=== PATIENT | female | born 1950 | race Caucasian/White ===

== ENCOUNTER 2018-07-18 09:47 | Inpatient (IN) | payer OTHER, MEDICAID ==
[~2018-07-18] VITALS: Ht 160 cm; Wt 81.0 kg
[~2018-07-18 09:47] MED LIST: ALDACTONE25 MG PO; ALDACTONE50 MG PO; AMITIZA 24 MCG24 MC1 PO; ANTIVERT12.5 MG PO; ASPIR 8181 MG PO; ASPIRIN EC81 M1 PO; ASPIRIN325 PO; ASPIRIN81 M2 PO; BENTYL20 MG PO; BENZTROPINE MES1 MG PO; BENZTROPINE MESY2 MG PO; BIOTIN1 MG PO; Biotin PO; CALCIUM CARBON650 MG PO; CARISOPRODOL 3350 MG PO; COLACE100 MG PO; DOCUSATE SODIU100 MG PO; ELOCON15 GM TOP; ELOCON15 GM TP; FLONASE 0.05%50 MCG NASAL; FOLIC ACID1 MG PO; GLUCAGEN1 M2 IM; HUMALOG KW200 UNIT/1 SUBQ; HYDROCODON-ACE1 EAC7 PO; HYDROCODONE-AP1 EAC6 PO; HYDROXYCHLOROQ200 M1 PO; IRON325 PO; KEFLEX500 M1 PO; LACTULOSE10 GM/15 M PO; LAMICTAL100 MG PO; LAMOTRIGINE100 MG PO; LAMOTRIGINE150 MG PO; LANTUS SUBQ; LANTUSSOLASTAR SUBQ; LASIX 40 MG TAB40 M2 PO; LEVOTHYROXIN0.075 MG PO; LEVOTHYROXIN0.125 M1 PO; LEXAPRO 10 MG T10 M1 PO; LOVAZA1000 MG PO; LYRICA 50 MG50 MG PO; MAGOX 400400 MG PO; METHYLPHENIDATE20 M1 PO; METHYLPHENIDATE20 M4 PO; NEXIUM 40 MG CA40 M1 PO; NEXIUM40 MG PO; NORCO 5-325 TA1 EACH PO; NOVOLOG100 UNIT/1 SUBQ; OLANZAPINE5 M1 PO; OXYBUTYNIN 5 MG5 M1 PO; OXYBUTYNIN ER 55 MG PO; PENICILLIN VK250 MG PO; PERCOCET PO; PRENATAL PLUS1 EAC4 PO; PRENATAL PLUS1 EAC5 PO; PRENATAL PLUS1 EACH PO; PROBIOTIC1 EACH PO; PROTONIX40 M2 PO; REQUIP0.5 MG PO; RITALIN20 MG PO; ROPINIROLE HCL0.5 MG PO; SENNA PO; SENNA-LAX8.6 MG PO; SPIRONOLACTONE100 M1 PO; TETRACYCLINE H500 MG PO; TRAMADOL 50 MG50 MG PO; TRINATE TABLET1 TAB PO; ULTRAM 50MG TAB50 MG PO; VANTIN PO; VITAMIN B-12500 MCG PO; VITAMIN B-6200 MG PO; VITAMIN B-625 MG PO; VITAMIN B-650 M1 PO; XANAX 0.5 MG0.5 M1 PO; XANAX 0.5 MG0.5 MG PO; XIFAXAN550 M1 PO; XIFAXAN550 MG PO; ZANAFLEX4 MG PO; ZYPREXA 10 MG T10 MG PO; ZYPREXA 5 MG TAB5 M2 PO; ZYPREXA5 MG PO; ZYRTEC10 M2 PO; ZYRTEC10 MG PO; [UNRECOGNIZED DRUG - OTHER] PO
[2018-07-18 10:31] LABS: ABSOLUTE EOSINOPHILS 0.1 thou/uL (0.0-0.7); ABSOLUTE LYMPHOCYTES 0.5 thou/uL (0.8-5.3); ABSOLUTE MONOCYTES 0.3 thou/uL (0.0-1.2); ABSOLUTE NEUTROPHILS 2.5 thou/uL (1.6-8.1); BASOPHILS 0.4 %; EOSINOPHILS 3.4 %; HEMATOCRIT 37.5 % (37.0-47.0); HEMOGLOBIN 12.8 gm/dL (12.0-15.0); LYMPHOCYTES 13.5 %; MCH 31.2 pg (26.0-34.0); MCHC 34.2 g/dL (28.0-37.0); MCV 91.3 fL (80.0-100.0); MPV 7.2 fl. (7.2-11.1); NUCLEATED RBCS 0 /100WBC; PLATELET COUNT* 60 thou/uL (150-400); POLYS 74.7 %; RBC 4.11 mil/uL (4.20-5.00); RDW-CV 16.3 % (10.5-14.5); WBC 3.4 thou/uL (4.0-11.0)
[2018-07-18 10:36] LABS: INR 1.2; PROTIME 11.8 Seconds (9.20-11.50)
[2018-07-18 10:55] LABS: CALCIUM 9.4 mg/dL (8.5-10.1); CREATININE 0.9 mg/dL (0.6-1.3); POTASSIUM 3.8 mmol/L (3.5-5.1)
[2018-07-18 10:59] LABS: ALBUMIN 3.5 g/dL (3.4-5.0); TOTAL BILIRUBIN 0.9 mg/dL (<0.1-1.0); TOTAL PROTEIN 7.7 g/dL (6.4-8.2)
[2018-07-18 11:35] VITALS: BP 161/58
--- NOTE | 2018-07-18 12:30 | NUR ---
ASSUMED PT CARE 1135. [facility]. PT C/O OF ABDOMINAL PAIN SHARP 7/10 AND C/O OF NAUSEA. FENTANYL, ZOFRAN AND SCOPALAMINE PATCH ADMININSTERED PER EMAR. ADMISSION ASSESSMENT COMPLETED. LR INFUSING TKO PER DR TENA. AT REASSESSMENT PT RATES PAIN 4/10. PT UP WITH 1 TO BSC. WILL CONTINUE PLAN OF CARE.
[2018-07-18 16:32] VITALS: BP 148/47
--- NOTE | 2018-07-18 18:38 | NUR ---
PT C/O OF ABDOMINAL PAIN. IV FENTANYL ADMININSTERED PER EMAR. LOWEST PAIN RATING IS 4/10. PT HAD BM THIS EVENING AND REPORTS THIS ALEVIATED PAIN IN ABDOMEM. DR TENA ORDERED LINACLOTIDIDE. PER PHARMACY MEDICATION NOT AVAILABLE. DR TENA NOTIFIED. NO ADDITIONAL ORDERS RECEIVED AT THIS TIME.
[2018-07-18 20:00] VITALS: BP 190/80
[2018-07-18 21:57] VITALS: BP 148/50
[2018-07-18 23:58] VITALS: BP 150/52
[2018-07-19 04:00] VITALS: BP 134/75
[2018-07-19 04:58] LABS: ABSOLUTE EOSINOPHILS 0.1 thou/uL (0.0-0.7); ABSOLUTE LYMPHOCYTES 0.6 thou/uL (0.8-5.3); ABSOLUTE MONOCYTES 0.5 thou/uL (0.0-1.2); ABSOLUTE NEUTROPHILS 2.7 thou/uL (1.6-8.1); BASOPHILS 0.7 %; EOSINOPHILS 3.2 %; HEMATOCRIT 36.5 % (37.0-47.0); HEMOGLOBIN 12.3 gm/dL (12.0-15.0); LYMPHOCYTES 15.7 %; MCH 31.1 pg (26.0-34.0); MCHC 33.6 g/dL (28.0-37.0); MCV 92.4 fL (80.0-100.0); MONOCYTES 11.6 %; MPV 7.3 fl. (7.2-11.1); NUCLEATED RBCS 0 /100WBC; PLATELET COUNT* 63 thou/uL (150-400); POLYS 68.8 %; RBC 3.95 mil/uL (4.20-5.00); RDW-CV 16.2 % (10.5-14.5); WBC 3.9 thou/uL (4.0-11.0)
--- NOTE | 2018-07-19 05:02 | NUR ---
PATIENT PROGRESSING TOWARDS GOALS. HAD TWO BM OVERNIGHT LIQUID CONSISTENCY. PT WAS ABLE TO SLEEP MOST OF THE NIGHT. SHE STATED SHE HAS NOT SLEPT IN THE LAST COUPLE DAYS. PT CONTINUES TO COMPLAIN OF ABD PAIN WHEN AWAKE. HAS NOT MAINTAINED COMPLETE RELIEF FOR THIS SHIFT. VS WNL. WILL CONTINUE TO MONITOR CLOSELY. CALL LIGHT WITHIN REACH. BED TO LOWEST POSITION.
[2018-07-19 05:03] LABS: CALCIUM 8.7 mg/dL (8.5-10.1); CREATININE 0.8 mg/dL (0.6-1.3); POTASSIUM 3.6 mmol/L (3.5-5.1)
[2018-07-19 08:00] VITALS: BP 145/75
[2018-07-19 11:50] VITALS: BP 158/65
[2018-07-19 12:00] VITALS: BP 158/65
--- NOTE | 2018-07-19 13:47 | NUR ---
PT.WALKED FROM BATHROOM WITH SBA FROM [facility]. CM SPOKE WITH HER.SHE LIVES AT [facility] IN [place]. SHE SAID HER BROTHER ARRANGED FOR HER TO LIVE THERE WHEN HE LIVED IN [place] BUT NOW HE HAS MOVED TO [place]. ONE TIME SHE SAID SHE DIDN'T LIKE IT THERE AND ANOTHER SHE SAID SHE DID. SHE WOULD LIKE TO MOVE CLOSER TO THIS AREA, GRANDSON LIVES DOWN HERE. SHE SAID SW AT [facility] WAS HELPING HER FIND AN KENDRICK BUT THEN SHE QUIT WORKING THERE. THERE IS SOMEONE WHO HAS TAKEN HER PLACE BUT SHE HASN'T GOTTEN TO SPEAK WITH HER YET. IS INTERESTED IN A LIST OF [facility] IN THIS AREA. SHE FEELS HER MEDICARE AND MEDICAID WOULD PAY FOR KENDRICK. TOLD HER I KNOW THAT MEDICAID WOULD PAY FOR SOME OF IT BUT NOT MEDICARE. SHE DOESNT USE ANY DME. SHE WILL NEED A RIDE BACK TO [facility] AFTER DISCHARGE. SHE FEELS SHE WAS ONLY STAYING ONE NIGHT IN HOSPITAL.
[2018-07-19 15:45] VITALS: BP 164/67
--- NOTE | 2018-07-19 15:53 | NUR ---
[employer] SPOKE TO THE PATIENT AND PROVIDED [employer]OURCES FOR ASSISTED LIVING FACILITIES. PATIENT INFORMS THAT SHE HADD BEEN LOOKING INTO MOVING OVER THE PAST FEW MONTHS, AND PLANS TO CALL [facility]. CM WILL REMAIN AVIALABLE TO ASSIT AND FOLLOW NEEDED.
--- NOTE | 2018-07-19 17:58 | NUR ---
ASSESSMENT CHARTED. AFEBRILE. PT HAS COMPLAINED OF SOME ABD. PAIN. VITAL SIGNS STABLE. MEDICATION GIVEN.
[2018-07-19 20:00] VITALS: BP 147/61
--- NOTE | 2018-07-20 00:24 | NUR ---
REPORT ON THIS PT WAS GIVEN TO CÉSAR JONES AT 0000. PT C/O HAVING PAIN IN GENERALIZED ABD. PRN PAIN MEDICATIONS GIVEN. PT INSIST THAT SHE RECEIVES THE IV PAIN MEDICATION THAT WAS GIVEN TO HER EARLIER. FENTANYL HAS BEEN DC'D AND PT DID NOT RECEIVE ANY PAIN MEDICATIONS DURING THE DAY THERE FORE PAIN LEVEL HAS INCREASED. ALL ATTEMPTS ARE BEING MADE TO GET PT'S PAIN UNDER CONTROL. VSS, AFEBRILE. 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 POC FOLLOWED.
[2018-07-20 03:54] LABS: ABSOLUTE EOSINOPHILS 0.1 thou/uL (0.0-0.7); ABSOLUTE LYMPHOCYTES 0.7 thou/uL (0.8-5.3); ABSOLUTE MONOCYTES 0.5 thou/uL (0.0-1.2); ABSOLUTE NEUTROPHILS 3.6 thou/uL (1.6-8.1); BASOPHILS 0.7 %; EOSINOPHILS 2.5 %; HEMATOCRIT 36.8 % (37.0-47.0); HEMOGLOBIN 12.4 gm/dL (12.0-15.0); LYMPHOCYTES 14.7 %; MCH 31.1 pg (26.0-34.0); MCHC 33.9 g/dL (28.0-37.0); MCV 91.8 fL (80.0-100.0); MONOCYTES 10.3 %; MPV 7.1 fl. (7.2-11.1); NUCLEATED RBCS 0 /100WBC; PLATELET COUNT* 71 thou/uL (150-400); POLYS 71.8 %; RBC 4.01 mil/uL (4.20-5.00)
[2018-07-20 04:29] LABS: ALBUMIN 3.1 g/dL (3.4-5.0); CALCIUM 8.6 mg/dL (8.5-10.1); CREATININE 0.9 mg/dL (0.6-1.3); POTASSIUM 3.3 mmol/L (3.5-5.1)
[2018-07-20 07:55] VITALS: BP 134/53
--- NOTE | 2018-07-20 11:19 | NUR ---
PT TOLD THIS NURSE SHE FELT 'GREAT' DURING ASSESSMENT AND PAIN WAS WELL CONTROLLED ON PAIN MEDS ORDERED. PT AT 75% BREAKFAST AND SAID SHE FOOD WAS GOOD HERE. PT TOLERATED DIET WITHOUT C/O. PT REQUESTED ZOFRAN BEFORE EATING. PT REPORTS HAVING BM YESTERDAY. PT UP TO CHAIR WITH SBA. PT NOW C/O PAIN IN LOW ABD, PAIN MANAGEMENT DISCUSSED AND PRN PAIN MEDICATIONS.
[2018-07-20 15:34] VITALS: BP 145/60
--- NOTE | 2018-07-20 16:26 | NUR ---
RECEIVED REPORT AND ASSUMED CARE @ [id number].
--- NOTE | 2018-07-20 18:34 | NUR ---
PT ALERT AND ORIENTED X 4. DENIES NAUSEA. GIVEN PO MEDICATION FOR PAIN CONTROL. PT TOLERATING SOFT DIET. HOURLY ROUNDS MAINTAINED. CALL LIGHT WITHIN REACH. NURSING TO CONTINUE TO MONITOR.
[2018-07-20 20:00] VITALS: BP 121/48
--- NOTE | 2018-07-20 20:51 | NUR ---
ASSUMED PT CARE AT 1915 REPORT RECEIVED FROM NURSE. PT IS ALERT AWAKE ORIENTED X4. VSS. SATURATION IS 94% ON RA. PT COMPLAIN OF PAIN IN BACK AND LEG, PAIN TO BE RELIEVED BY MED. ASSESSMENT PERFORMED. BOWEL SOUND ARE ACTIVE, PT STATES SHE HAD HER LAST BM THIS MORNING. CURRENTLY ON SOFT DIET. WILL CONTINUE TO MONITOR.
[2018-07-21 04:18] LABS: HEMATOCRIT 33.8 % (37.0-47.0); HEMOGLOBIN 11.5 gm/dL (12.0-15.0); MCH 31.4 pg (26.0-34.0); MCHC 33.9 g/dL (28.0-37.0); MCV 92.4 fL (80.0-100.0); RBC 3.66 mil/uL (4.20-5.00); RDW-CV 16.1 % (10.5-14.5); WBC 3.6 thou/uL (4.0-11.0)
[2018-07-21 04:32] LABS: CALCIUM 8.9 mg/dL (8.5-10.1); CREATININE 0.9 mg/dL (0.6-1.3); MAGNESIUM 1.5 mg/dL (1.8-2.4); POTASSIUM 3.9 mmol/L (3.5-5.1)
[2018-07-21 08:47] VITALS: BP 134/71
--- NOTE | 2018-07-21 10:40 | NUR ---
Nutrition: Consult received for "soft diet x2 weeks, swallowing pain d/t variceal banding." Pt was sleeping soundly at time of visit, 10:20. RD left soft/fiber-restricted/easily swallowed and digested foods diet info on pt's table. Contact info is provided as well. Currently, pt is on 2gm Na diet. Mild risk.
[2018-07-21] MEDS ORDERED: SENNA PLUS TAB1 EACH PO (11:48)
[2018-07-21] MEDS ORDERED: CARAFATE 11 GM/10 M1 PO (11:49)
--- NOTE | 2018-07-21 12:20 | NUR ---
PT.HAS DISCHARGE ORDERS TO GO BACK TO LTC AT [facility]. NOTIFIED ELBERT/ADMISSIONS [phone] AND FAXED HER DISCHARGE SUMMARY,H&P,GI PROGRESS NOTES, AND MED LIST TO [phone]. 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 PT.INFORMED.
[2018-07-21 12:44] VITALS: BP 134/71
[2018-07-21 12:52] VITALS: BP 134/71
[2018-07-21] MEDS ORDERED: ULTRAM 50MG TAB50 MG PO (13:01)
--- NOTE | 2018-07-21 13:51 | NUR ---
REVIEWED AND AGREE WITH ALL CHARTING AND ASSESSMENTS COMPLETED BY RUBÉN Erickson RN.
[2018-07-21 14:05] VITALS: BP 134/71
--- NOTE | 2018-07-21 14:06 | NUR ---
PT DISCHARGE PACKET CREATED AND PLACED IN ENVELOPE THAT WAS GIVEN TO LONG-TERM TRANSPORTER. PRESCRIPTIONS GIVEN AND INFORMATION ON THEM. PT IV REMOVED. PT BELONINGS GATHERED. PT WALKED TO VEHICLE WITH TRANSPORTER. HOURLY ROUNDING COMPLETED.
== END 2018-07-21 14:07 | DRG 442 ==
LOC: M.TBA 09:47 → M.ORTHSURG 09:47
PROVIDERS: Family Medicine; Internal Medicine Gastroenterology; ADMIT Internal Medicine
DX: K72.90 Hepatic failure, unspecified without coma (principal); K76.6 Portal hypertension; D61.818 Other pancytopenia; G89.18 Other acute postprocedural pain; K76.0 Fatty (change of) liver, not elsewhere classified; J45.909 Unspecified asthma, uncomplicated; I10 Essential (primary) hypertension; E11.40 Type 2 diabetes mellitus with diabetic neuropathy, unspecified; E03.9 Hypothyroidism, unspecified; G89.29 Other chronic pain; M54.9 Dorsalgia, unspecified; K74.60 Unspecified cirrhosis of liver; R13.10 Dysphagia, unspecified; K59.00 Constipation, unspecified; K59.03 Drug induced constipation; T40.605A Adverse effect of unspecified narcotics, initial encounter; Z88.6 Allergy status to analgesic agent; Z88.1 Allergy status to other antibiotic agents; Z88.2 Allergy status to sulfonamides; Z88.8 Allergy status to other drugs, medicaments and biological substances; Z90.49 Acquired absence of other specified parts of digestive tract; Z90.710 Acquired absence of both cervix and uterus; Z82.49 Family history of ischemic heart disease and other diseases of the circulatory system; Z80.0 Family history of malignant neoplasm of digestive organs; Z82.3 Family history of stroke; Z83.3 Family history of diabetes mellitus; Z98.41 Cataract extraction status, right eye; Z98.42 Cataract extraction status, left eye